=== PATIENT | male | born 1950 | race Caucasian/White ===

== ENCOUNTER 2018-06-10 15:30 | Inpatient (IN) | payer OTHER ==
[~2018-06-10] VITALS: Ht 160 cm; Wt 64.4 kg
[2018-06-10 12:51] LABS: BASOPHILS % (AUTO) 0.9 % (0.0-5.0); EOSINOPHILS % (AUTO) 2.5 % (0.0-8.0); HEMATOCRIT 49.2 % (42-54); LYMPHOCYTES % (AUTO) 25.8 % (21.0-51.0); MEAN CORPUSCULAR HEMOGLOBIN 29.8 pg (27.0-33.0); MEAN CORPUSCULAR HGB CONC 34.1 g/dL (32.0-36.0); MEAN CORPUSCULAR VOLUME 87.3 fL (79-99); MONOCYTES % (AUTO) 6.3 % (3.0-13.0); NEUTROPHILS % (AUTO) 64.5 % (40.0-77.0); PLATELET COUNT (AUTO) 323 K/uL (130-400); RED BLOOD CELL COUNT(AUTO) 5.64 MIL/uL (4.50-6.20); RED CELL DISTRIBUTION WIDTH 13.4 % (11.0-15.5); WHITE BLOOD COUNT (AUTO) 9.6 K/uL (4.8-10.8)
[2018-06-10 12:57] LABS: CREATININE 0.9 mg/dL (0.5-1.5); POTASSIUM 4.3 mmol/L (3.5-5.1)
[2018-06-10 12:59] VITALS: BP 151/69
[2018-06-10 13:18] LABS: APPEARANCE,URINE Clear (CLEAR); BILIRUBIN,URINE Negative (NEGATIVE); COLOR,URINE Yellow (YELLOW); GLUCOSE, URINE (UA) >=1000 mg/dL (NEGATIVE); KETONES,URINE Negative (NEGATIVE); LEUKOCYTE ESTERASE ,URINE Negative (NEGATIVE); NITRATE,URINE Negative (NEGATIVE); OCCULT BLOOD,URINE Negative (NEGATIVE); PROTEIN,URINE POS 1+ (NEGATIVE)
[2018-06-10 13:50] LABS: BACTERIA,URINE Rare /HPF (None Seen); RBC,URINE None Seen /HPF (0-1); WBC,URINE None Seen /HPF (0-1); YEAST,URINE BUDDING Rare /HPF (None Seen)
[2018-06-10 13:51] LABS: SQUAMOUS EPITHELIAL CELL,UR 0-2 /HPF (0-2)
[~2018-06-10 15:30] MED LIST: CARBOXYMETHYLCELLULOSE OP; DIAZ2TAB3 PO; DICY20TA11 PO; DRON5CAP15 PO; FAMO20TA8 PO; GABA-531 PO; GLIP10TA9 PO; HYDR-3421 PO; MELA3TAB PO; METF-444 PO; MORP60TA69 PO; OMEP20CA10 PO; PRAZ5CAP2 PO; QUET100T70 PO; SERT100T12 PO; SILDENAFIL CITRATE PO; [UNRECOGNIZED DRUG - OTHER] SQ; sucralfate PO; viagra PO
[2018-06-14] VITALS (27 sets, daily range): BP systolic 120–188; BP diastolic 60–96
[2018-06-14] MEDS ORDERED: CEFOXITIN SODIUM 2 GM VIAL IVP PRN (06:00)
[2018-06-14] MEDS ORDERED: LACTATED RINGERS 1000ML 1,000 ML IV SCH (08:00)
[2018-06-14] MEDS ORDERED: SODIUM CHLORIDE 0.9% 1000ML 1,000 ML IV ONE (08:31)
[2018-06-14] MEDS ORDERED: HYDROMORPHONE 1 MG/1 ML AMP ONE ×2 (10:21→14:45)
[2018-06-14] MEDS ORDERED: LIDOCAINE PF 2% 5ML ABBOJECT ONE (11:23)
[2018-06-14] MEDS ORDERED: ONDANSETRON HCL 4 MG/2 ML VIAL ONE (11:23)
[2018-06-14] MEDS ORDERED: MIDAZOLAM HCL 1 MG/ML 2ML VIAL ONE (11:23)
[2018-06-14] MEDS ORDERED: NEOSTIGMINE 5MG/5ML SYR IV ONE (11:23)
[2018-06-14] MEDS ORDERED: FENTANYL CITRATE PF 50 MCG/1 ML 5ML AMP IV ONE (11:23)
[2018-06-14] MEDS ORDERED: DEXAMETHASONE SOD PHOSPHATE 4 MG/ML 1ML VIAL ONE (11:23)
[2018-06-14] MEDS ORDERED: GLYCOPYRROLATE 1 MG/5 ML SYRINGE ONE (11:23)
[2018-06-14] MEDS ORDERED: PROPOFOL 10 MG/ML 20ML VIAL IV ONE (11:23)
[2018-06-14] MEDS ORDERED: SUB TO ALBUTEROL 2.5MG/3ML NEBULES PER P&T IH ONE (11:24)
[2018-06-14] MEDS ORDERED: PRECEDEX IV SCH ×2 (11:30)
[2018-06-14] MEDS ORDERED: [UNRECOGNIZED DRUG - OTHER] IV SCH ×2 (11:30)
[2018-06-14] MEDS ORDERED: HYDROMORPHONE HCL 0.5 MG/0.5 ML ML IVP ONE (12:00)
[2018-06-14] MEDS ORDERED: ROCURONIUM 10MG/1ML SYR 10 MG/ML ML ONE ×2 (12:08→13:18)
[2018-06-14] MEDS ORDERED: FAMOTIDINE/PF 20 MG/2 ML VIAL IV ONE (12:47)
[2018-06-14] MEDS ORDERED: KETAMINE 50MG/ML SYRINGE 50 MG/ML DISP.SYRIN IV ONE (12:48)
[2018-06-14] MEDS ORDERED: MORPHINE SULFATE 2 MG/ML 1ML SYG IV PRN (14:15)
[2018-06-14] MEDS ORDERED: LABETALOL HCL 5 MG/ML 20ML VIAL IV ONE (14:59)
[2018-06-14] MEDS ORDERED: GLUCAGON 1MG KIT 1 MG ML IM PRN (15:30)
[2018-06-14] MEDS ORDERED: DEXTROSE 50%-WATER 50 ML DISP.SYRIN IV PRN (15:30)
[2018-06-14] MEDS: MORPHINE SULFATE 4 MG/1ML SYG IV PRN ×2 (16:48→21:35)
[2018-06-14] MEDS: SODIUM CHLORIDE 0.9% 1000ML 1,000 ML IV SCH (19:22)
[2018-06-14] MEDS: FAMOTIDINE/PF 20 MG/2 ML VIAL IV SCH (19:22)
[2018-06-14] MEDS: ONDANSETRON HCL 4 MG/2 ML VIAL IVP PRN (19:23)
[2018-06-14] MEDS ORDERED: LABETALOL HCL 5 MG/ML 20ML VIAL IV PRN (20:00)
[2018-06-14] MEDS: INSULIN HUMULIN R 100 UNIT/ML 3ML SQ PRN (20:10)
[2018-06-15] MEDS: MORPHINE SULFATE 4 MG/1ML SYG IV PRN ×3 (01:07→06:54)
[2018-06-15] MEDS: ONDANSETRON HCL 4 MG/2 ML VIAL IVP PRN ×3 (01:07→09:13)
[2018-06-15] MEDS: SODIUM CHLORIDE 0.9% 1000ML 1,000 ML IV SCH ×2 (01:08→09:07)
[2018-06-15 03:03] VITALS: BP 157/87
[2018-06-15 05:30] LABS: BASOPHILS % (AUTO) 0.2 % (0.0-5.0); HEMATOCRIT 46.1 % (42-54); LYMPHOCYTES % (AUTO) 5.1 % (21.0-51.0); MEAN CORPUSCULAR HEMOGLOBIN 29.1 pg (27.0-33.0); MEAN CORPUSCULAR HGB CONC 33.4 g/dL (32.0-36.0); MEAN CORPUSCULAR VOLUME 87.3 fL (79-99); MONOCYTES % (AUTO) 5.9 % (3.0-13.0); NEUTROPHILS % (AUTO) 88.8 % (40.0-77.0); PLATELET COUNT (AUTO) 260 K/uL (130-400); RED BLOOD CELL COUNT(AUTO) 5.29 MIL/uL (4.50-6.20); RED CELL DISTRIBUTION WIDTH 13.7 % (11.0-15.5); WHITE BLOOD COUNT (AUTO) 17.9 K/uL (4.8-10.8)
[2018-06-15 05:40] LABS: CREATININE 0.7 mg/dL (0.5-1.5); POTASSIUM 3.7 mmol/L (3.5-5.1)
[2018-06-15] MEDS: INSULIN HUMULIN R 100 UNIT/ML 3ML SQ PRN (05:58)
[2018-06-15 07:48] VITALS: BP 182/84
[2018-06-15] MEDS: FAMOTIDINE/PF 20 MG/2 ML VIAL IV SCH ×2 (09:03→20:01)
[2018-06-15] MEDS: MEPERIDINE HCL/PF 25 MG/0.5 ML AMPUL IVP PRN ×2 (09:14→12:10)
[2018-06-15 11:44] VITALS: BP 155/86
[2018-06-15] MEDS: LORAZEPAM 2 MG/ML 1 ML VIAL IVP PRN ×2 (14:03→21:55)
[2018-06-15] MEDS ORDERED: HYDRALAZINE HCL 20 MG/ML VIAL IV PRN (14:45)
[2018-06-15] MEDS: METOPROLOL TARTRATE 1 MG/ML 5ML VIAL IV SCH ×2 (16:21→22:59)
[2018-06-15] MEDS: FENTANYL 25 MCG/HR PATCH TD SCH (16:22)
[2018-06-15 19:47] VITALS: BP 161/88
[2018-06-15] MEDS ORDERED: MEPERIDINE-PF 50 MG/ML SYG ONE ×2 (20:00→22:54)
[2018-06-15 23:32] VITALS: BP 161/89
[2018-06-16] MEDS ORDERED: MEPERIDINE-PF 25 MG/ML SYG ONE ×2 (02:21→06:56)
[2018-06-16 04:09] VITALS: BP 148/89
[2018-06-16 04:53] LABS: BASOPHILS % (AUTO) 0.2 % (0.0-5.0); EOSINOPHILS % (AUTO) 0.2 % (0.0-8.0); HEMATOCRIT 45.4 % (42-54); MEAN CORPUSCULAR HGB CONC 34.5 g/dL (32.0-36.0); MEAN CORPUSCULAR VOLUME 87.1 fL (79-99); MONOCYTES % (AUTO) 6.6 % (3.0-13.0); PLATELET COUNT (AUTO) 309 K/uL (130-400); RED BLOOD CELL COUNT(AUTO) 5.21 MIL/uL (4.50-6.20); RED CELL DISTRIBUTION WIDTH 13.4 % (11.0-15.5); WHITE BLOOD COUNT (AUTO) 16.2 K/uL (4.8-10.8)
[2018-06-16] MEDS: METOPROLOL TARTRATE 1 MG/ML 5ML VIAL IV SCH ×4 (04:53→20:14)
[2018-06-16] MEDS: LORAZEPAM 2 MG/ML 1 ML VIAL IVP PRN (04:54)
[2018-06-16] MEDS: SODIUM CHLORIDE 0.9% 1000ML 1,000 ML IV SCH ×2 (04:55→10:25)
[2018-06-16 05:05] LABS: CREATININE 0.7 mg/dL (0.5-1.5); POTASSIUM 3.9 mmol/L (3.5-5.1)
[2018-06-16 07:00] VITALS: BP 170/73
[2018-06-16] MEDS: FAMOTIDINE/PF 20 MG/2 ML VIAL IV SCH ×2 (10:25→20:15)
[2018-06-16] MEDS: MEPERIDINE HCL/PF 25 MG/0.5 ML AMPUL IVP PRN ×2 (11:05→16:10)
[2018-06-16 11:08] VITALS: BP 150/84
[2018-06-16 16:01] VITALS: BP 154/81
[2018-06-16] MEDS ORDERED: MEPERIDINE-PF 25 MG/ML SYG SQ PRN (20:00)
[2018-06-16 20:20] VITALS: BP 159/88
[2018-06-16] MEDS: MEPERIDINE-PF 25 MG/ML SYG IV PRN (23:41)
[2018-06-17 00:15] VITALS: BP 151/84
[2018-06-17] MEDS: MEPERIDINE-PF 25 MG/ML SYG IV PRN ×6 (02:53→21:29)
[2018-06-17] MEDS: LORAZEPAM 2 MG/ML 1 ML VIAL IVP PRN (04:21)
[2018-06-17] MEDS: METOPROLOL TARTRATE 1 MG/ML 5ML VIAL IV SCH (04:21)
[2018-06-17] MEDS: ONDANSETRON HCL 4 MG/2 ML VIAL IVP PRN ×4 (04:21→20:29)
[2018-06-17 04:33] VITALS: BP 157/77
[2018-06-17 05:05] LABS: BASOPHILS % (AUTO) 0.5 % (0.0-5.0); EOSINOPHILS % (AUTO) 0.7 % (0.0-8.0); HEMATOCRIT 42.1 % (42-54); LYMPHOCYTES % (AUTO) 13.4 % (21.0-51.0); MEAN CORPUSCULAR HEMOGLOBIN 29.6 pg (27.0-33.0); MEAN CORPUSCULAR VOLUME 86.9 fL (79-99); MONOCYTES % (AUTO) 6.5 % (3.0-13.0); NEUTROPHILS % (AUTO) 78.9 % (40.0-77.0); NUCLEATED RED BLOOD CELLS 0.1 % (0.0-0.19); PLATELET COUNT (AUTO) 253 K/uL (130-400); RED BLOOD CELL COUNT(AUTO) 4.85 MIL/uL (4.50-6.20); RED CELL DISTRIBUTION WIDTH 13.3 % (11.0-15.5); WHITE BLOOD COUNT (AUTO) 18.9 K/uL (4.8-10.8)
[2018-06-17 05:12] LABS: CREATININE 0.6 mg/dL (0.5-1.5); POTASSIUM 3.6 mmol/L (3.5-5.1)
[2018-06-17 07:30] VITALS: BP 151/72
[2018-06-17] MEDS: FAMOTIDINE/PF 20 MG/2 ML VIAL IV SCH ×2 (08:39→20:29)
[2018-06-17 11:00] VITALS: BP 154/80
[2018-06-17] MEDS: METOPROLOL TARTRATE 25 MG TAB PO SCH ×2 (11:36→20:29)
[2018-06-17] MEDS: SODIUM CHLORIDE 0.9% 1000ML 1,000 ML IV SCH ×2 (11:37→15:00)
[2018-06-17] MEDS ORDERED: ZOLPIDEM TARTRATE 5 MG TAB PO PRN (14:30)
[2018-06-17 16:00] VITALS: BP 149/74
[2018-06-17 20:12] VITALS: BP 148/71
[2018-06-17] MEDS: INSULIN HUMULIN R 100 UNIT/ML 3ML SQ PRN (20:34)
[2018-06-18 00:16] VITALS: BP 150/82
[2018-06-18] MEDS: MEPERIDINE-PF 25 MG/ML SYG IV PRN ×6 (00:36→16:25)
[2018-06-18] MEDS: ONDANSETRON HCL 4 MG/2 ML VIAL IVP PRN ×3 (00:36→09:51)
[2018-06-18 04:20] VITALS: BP 134/73
[2018-06-18] MEDS: INSULIN HUMULIN R 100 UNIT/ML 3ML SQ PRN (06:32)
[2018-06-18 07:48] VITALS: BP 136/74
[2018-06-18] MEDS: FAMOTIDINE/PF 20 MG/2 ML VIAL IV SCH (09:00)
[2018-06-18] MEDS: METOPROLOL TARTRATE 25 MG TAB PO SCH (09:00)
[2018-06-18 12:08] VITALS: BP 161/74
[2018-06-18] MEDS ORDERED: DIAZEPAM 2 MG TAB PO SCH (13:45)
[2018-06-18] MEDS: FENTANYL 25 MCG/HR PATCH TD SCH (16:17)
[2018-06-18] MEDS ORDERED: HYDROCODONE/ACETAMINOPHEN 10/325 MG TAB PO PRN (16:30)
[2018-06-18] MEDS ORDERED: METOPROLOL TARTRATE 50 MG TAB PO SCH (21:00)
[2018-06-19] MEDS ORDERED: DICYCLOMINE HCL 20 MG TAB PO SCH (09:00)
[2018-06-19] MEDS ORDERED: PRAZOSIN HCL 5 MG CAPSULE PO SCH (09:00)
[2018-06-19] MEDS ORDERED: GABAPENTIN 300 MG CAPSULE PO SCH (09:00)
[2018-06-19] MEDS ORDERED: FAMOTIDINE 20MG TAB 20 MG TAB PO SCH (09:00)
[2018-06-19] MEDS ORDERED: HYDROXYZINE HCL 25 MG TABLET PO SCH (09:00)
[2018-06-19] MEDS ORDERED: QUETIAPINE FUMARATE 100 MG TAB PO SCH (09:00)
== END 2018-06-18 16:51 | disposition home or self-care (01) | DRG 330 ==
LOC: EDSTATUS 15:30 → DAHIP 06-14 07:47 → 4BH 06-14 15:12
PROVIDERS: ADMIT Surgery; ATTEND Surgery
PROC: 0DBL0ZZ Excision of Transverse Colon, Open Approach (ICD-10-PCS; principal; 2018-06-14 12:00)
DX: C18.9 Malignant neoplasm of colon, unspecified (principal); F11.20 Opioid dependence, uncomplicated; E11.9 Type 2 diabetes mellitus without complications; I10 Essential (primary) hypertension; G89.29 Other chronic pain; M54.9 Dorsalgia, unspecified; F17.210 Nicotine dependence, cigarettes, uncomplicated; G89.18 Other acute postprocedural pain; E66.9 Obesity, unspecified; Z68.25 Body mass index [BMI] 25.0-25.9, adult; Z88.0 Allergy status to penicillin; Z88.8 Allergy status to other drugs, medicaments and biological substances
CPT/HCPCS: 36415; 71045; 80048; 81001; 82948; 85025; 88307; 93005; A4218; A4344; J0694; J1100; J1170; J1815; J2001; J2060; J2175; J2250; J2270; J2405; J2704; J2710; J3010; J3490; J7030